=== PATIENT | female | born 1995 | race Caucasian/White ===

== ENCOUNTER → 2019-04-03 | Outpatient (CLI) | payer OTHER ==
--- NOTE | 2019-04-03 12:33 | REP ---
LUMBOSACRAL SPINE: Five views of the lumbosacral spine performed. There is no compression fracture. There is normal lumbar lordosis. There is no spondylolysis or spondylolisthesis. Disc spaces are well preserved. Posterior elements are intact. IUD is seen in the pelvis. IMPRESSION: Negative lumbosacral spine series. Electronically Signed by August Campos MD 04/03/2019 11:55 P
== END ==
LOC: M LRY 10:48 → M WUC 10:48
PROVIDERS: ATTEND Physician Assistant
DX: M54.5 Low back pain (principal)
CPT/HCPCS: 72110; G0463